=== PATIENT | female | born 1965 | race Caucasian/White ===

== ENCOUNTER 2019-01-01 15:02 | Emergency (ER) | payer OTHER ==
[2019-01-01 15:15] VITALS: BP 124/84; PULSE 91; TEMP 97.4; BMI 24.7
--- NOTE | 2019-01-01 15:20 | PDOC ---
History of Present Illness - General Chief Complaint: Eye Problem Stated Complaint: RIGHT EYE PROBLEM Time Seen by Provider: 01/01/19 15:14 History Source: Patient Exam Limitations: No Limitations - History of Present Illness Initial Comments: 01/01/19 15:14 onset of right eye redness acute onset yesterday- after sneezing , no fevers/ cough/ dizziness/ pain to eye. Vision WNL. Associated Symptoms: reports: denies symptoms. denies: headaches Past History - Travel Traveled outside of the country in the last 30 days: No Close contact w/someone who was outside of country & ill: No - Past Medical History Allergies/Adverse Reactions: Allergies Allergy/AdvReac Type Severity Reaction Status Date / Time No Known Allergies Allergy Verified 07/15/14 15:59 Home Medications: Ambulatory Orders Amlodipine Besylate [Norvasc -] 5 mg PO DAILY 07/15/14 Losartan/Hydrochlorothiazide [Losartan-Hctz 50-12.5 mg Tab] 1 each PO ASDIR HTN: Yes - Suicide/Smoking/Psychosocial Hx Smoking History: Never smoked Have you smoked in the past 12 months: No Hx Alcohol Use: No Substance Use Type: None Review of Systems - Review of Systems Able to Perform ROS?: Yes Is the patient limited [place] proficient: Yes Constitutional: Yes: See HPI. No: Symptoms Reported, Fever, Malaise HEENTM: Yes: Symptoms Reported, See HPI. No: Eye Pain, Blurred Vision, Tearing Respiratory: Yes: See HPI. No: Symptoms reported ABD/GI: No: Symptoms Reported Musculoskeletal: No: Symptoms Reported Integumentary: No: Symptoms Reported *Physical Exam - Physical Exam General Appearance: Yes: Nourished, Appropriately Dressed HEENT: positive: APOORVA (subconjunctival hemmorage ~ 50% to inner aspect of right eye, visual acuity WNL, no pain , no photophobia ), Normal ENT Inspection, TMs Normal, Pharynx Normal, Other Neck: positive: Supple. negative: Tender, Lymphadenopathy (R), Lymphadenopathy (L) Respiratory/Chest: positive: Lungs Clear, Normal Breath Sounds *DC/Admit/Observation/Transfer Diagnosis at time of Disposition: Subconjunctival bleed Qualifiers: Laterality: right Qualified Code(s): H11.31 - Conjunctival hemorrhage, right eye - Discharge Dispostion Disposition: HOME Condition at time of disposition: Stable Decision to Admit order: No - Referrals - Patient Instructions Printed Discharge Instructions: DI for Subconjunctival Hemorrhage Additional Instructions: Rest, No strenous activity or exercise until pain gone. No further medication or treatment needed F/U with Opthomologist as needed - Post Discharge Activity Forms/Work/School Notes: Back to Work
== END 2019-01-01 16:03 | disposition home or self-care (01) ==
LOC: JERFT 15:02
DX: H11.31 Conjunctival hemorrhage, right eye (principal); I10 Essential (primary) hypertension
CPT/HCPCS: 99281-25

== ENCOUNTER 2022-11-01 15:20 | Emergency (ER) | payer OTHER ==
[2022-11-01 15:45] VITALS: BP 114/74; PULSE 91; RESP 18; TEMP 98; BMI 23.8
== END 2022-11-01 18:23 | disposition home or self-care (01) ==
LOC: JER 15:20
DX: R05.1 Acute cough (principal); M79.10 Myalgia, unspecified site
CPT/HCPCS: 0241U-QW; 99283-25